=== PATIENT | male | born 1995 | race Caucasian/White ===

== ENCOUNTER 2020-08-04 14:16 | Emergency (ER) | payer MEDICAID, SELFPAY ==
[2020-08-04 14:18] VITALS: BP 134/99; PULSE 92; RESP 16; TEMP 36.7; O2SAT 97; BMI 42.1
--- NOTE | 2020-08-04 14:21 | ED.RN ---
PT ASKING IF ER PROVIDER WILL WRITE PRESCRIPTION FOR SUBOXONE BECAUSE I HAVE NOT BEEN TO A DOCTOR BECAUSE I HAVE NO INSURANCE. PATIENT THEN STATES I HOPE THIS GETS ME MONEY, BECAUSE EVERYONE IS TELLING ME I WILL GET MONEY IF I GO TO ER.
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
[2020-08-04] MEDS: Acetaminophen 500 MG Tablet 1000 MG PO (14:57)
[2020-08-04 15:32] VITALS: RESP 18
== END 2020-08-04 15:34 | disposition home or self-care (01) ==
PROVIDERS: Emergency Provider Emergency Medicine
DX: S93.401A Sprain of unspecified ligament of right ankle, initial encounter (principal); F17.200 Nicotine dependence, unspecified, uncomplicated; V43.63XA Car passenger injured in collision with pick-up truck in traffic accident, initial encounter; Y93.I9 Activity, other involving external motion; Y92.410 Unspecified street and highway as the place of occurrence of the external cause; Y99.8 Other external cause status
CPT/HCPCS: 73610; 99283

== ENCOUNTER 2021-04-24 18:52 | Emergency (ER) | payer MEDICAID, SELFPAY ==
[2021-04-24 18:53] VITALS: BP 152/119; PULSE 117; RESP 16; TEMP 35.8; O2SAT 98; BMI 36.6
--- NOTE | 2021-04-24 18:56 | ED.RN ---
PT. STATES THEY LIVE WITH MOM AND SISTER. HAS NEVER BEEN SUICIDAL AND HAS NO PLAN. APPEARS DEPRESSED. HAS BEEN OFF SUBOXONE FOR ABOUT SIX TO EIGHT MONTHS DUE TO NOT BEING ABLE TO AFFORD PRESCRIPTION. DENIES ANY DRUG USE, OTHER THAN MARIJUANA.
--- NOTE | 2021-04-24 19:04 | EDS_ITS ---
HPI <HAMILTON Vega - Last Filed: 04/24/21 20:26> HPI - Psych History of Present Illness Chief Complaint: Mental Health Narrative Narrative: 25-year-old male presents with suicidal ideation. He states he wants to hurt himself but will not provide any details as to when this started and states he has no plan. When probed he states he might inject bleach or lie down in the snow and fall asleep. He denies homicidal ideation. He states he lives with his mom and sister in [place] and denies any domestic conflict or recent stressors. He states he feels like a burden on his family and he cannot keep a job. He walked here 40 minutes in the snow to be evaluated. He states he has been depressed since high school but denies history of SI or psychiatric hospitalization. He has a remote history of heroin use and was on Suboxone but stopped taking it 8 months ago because he cannot afford it. He admits to using marijuana and drinking beer occasionally. He denies medical problems and the only medication he takes is occasional ibuprofen. PFSH <HAMILTON Vega - Last Filed: 04/24/21 20:26> [facility] Home Medications NK 04/24/21 [History Last Taken Unknown] Allergy/AdvReac Type Severity Reaction Status Date / Time Penicillins Allergy Rash Verified 08/04/20 14:21 Social History Smoking Status: Current some day smoker tobacco type: cigarettes ROS <HAMILTON Vega - Last Filed: 04/24/21 20:26> ROS ED ROS Narrative Constitutional: Negative for fever, chills, malaise. Eyes: Negative for visual change. ENT: Negative for sore throat, ear pain, rhinorrhea. CVS: Negative for palpitations, chest pain, syncope. Respiratory: Negative for shortness of breath, cough, orthopnea. GI: Negative for abdominal pain, nausea, vomiting, diarrhea, constipation, melena, hematochezia. : Negative for dysuria, hematuria or frequency. Neuro: Negative for headache, motor/sensory dysfunction. Skin: Negative for rash, abscess, or wound. Heme: Negative for easy bruising, bleeding, lymphadenopathy. EXAM <HAMILTON Vega - Last Filed: 04/24/21 20:26> Physical Exam Narrative Exam Narrative: CONST: Patient sitting in no acute distress. EYES: Normal inspection. ENT: Normal inspection, moist mucous membranes. NECK: Normal inspection. RESP: No respiratory distress, CTAB. CVS: Tachycardic with regular rhythm, no murmur, no gallop. SKIN: Color normal, no rash, warm, dry, intact. EXTREMITIES: Normal appearance, no pedal edema. NEURO: Oriented x4. CN 2-12 intact. Moving all extremities, normal gait. PSYCH: Flat affect. Const Vital Signs: 04/24/21 18:53 04/24/21 21:44 04/25/21 00:00 Temperature 96.5 F L 97.8 F Temperature Source Temporal Temporal Pulse Rate 117 H 84 Respiratory Rate 16 18 15 Blood Pressure 152/119 H 139/82 H Blood Pressure Mean 130 101 Pulse Ox 98 100 Oxygen Delivery Method Room Air Room Air 04/25/21 01:00 04/25/21 02:20 04/25/21 03:14 Temperature Temperature Source Pulse Rate 89 Respiratory Rate 14 16 16 Blood Pressure 159/90 H Blood Pressure Mean 113 Pulse Ox 100 Oxygen Delivery Method Room Air 04/25/21 04:40 04/25/21 05:31 04/25/21 06:37 Temperature Temperature Source Pulse Rate Respiratory Rate 20 H 16 16 Blood Pressure Blood Pressure Mean Pulse Ox Oxygen Delivery Method 04/25/21 10:12 Temperature 97.8 F Temperature Source Temporal Pulse Rate 99 Respiratory Rate 16 Blood Pressure 140/83 H Blood Pressure Mean 102 Pulse Ox 99 Oxygen Delivery Method Room Air <Dr. Armand Corrales, DO - Last Filed: 04/25/21 10:40> Physical Exam Const Vital Signs: 04/24/21 18:53 04/24/21 21:44 04/25/21 00:00 Temperature 96.5 F L 97.8 F Temperature Source Temporal Temporal Pulse Rate 117 H 84 Respiratory Rate 16 18 15 Blood Pressure 152/119 H 139/82 H Blood Pressure Mean 130 101 Pulse Ox 98 100 Oxygen Delivery Method Room Air Room Air 04/25/21 01:00 04/25/21 02:20 04/25/21 03:14 Temperature Temperature Source Pulse Rate 89 Respiratory Rate 14 16 16 Blood Pressure 159/90 H Blood Pressure Mean 113 Pulse Ox 100 Oxygen Delivery Method Room Air 04/25/21 04:40 04/25/21 05:31 04/25/21 06:37 Temperature Temperature Source Pulse Rate Respiratory Rate 20 H 16 16 Blood Pressure Blood Pressure Mean Pulse Ox Oxygen Delivery Method 04/25/21 10:12 Temperature 97.8 F Temperature Source Temporal Pulse Rate 99 Respiratory Rate 16 Blood Pressure 140/83 H Blood Pressure Mean 102 Pulse Ox 99 Oxygen Delivery Method Room Air MDM <HAMILTON Vega - Last Filed: 04/24/21 20:26> MDM MDM Narrative Medical decision making narrative: Patient presents with suicidal ideation. He appears well nontoxic. He is mildly hypertensive and tachycardic, otherwise no rmal vital signs. Medical exam is unremarkable. Screening labs including alcohol and urine drug screen are pending. The plan is to medically clear the patient for transfer to psychiatric facility for further evaluation of SI. Lab Data Labs: Laboratory Results - last 24 hr 04/24/21 04/24/21 04/24/21 19:55 19:55 19:55 WBC 7.7 RBC 4.56 L Hgb 14.4 Hct 39.9 L MCV 87.5 MCH 31.6 MCHC 36.1 H RDW Std Deviation 37.9 RDW Coeff of Vicky 11.8 Plt Count 291 MPV 11.1 Immature Gran % (Auto) 0.300 Neut % (Auto) 72.8 H Lymph % (Auto) 16.0 L [place] % (Auto) 9.8 Eos % (Auto) 0.7 Baso % (Auto) 0.4 Absolute Neuts (auto) 5.6 Absolute Lymphs (auto) 1.23 Nucleated RBC % 0 Sodium 137 Potassium 3.7 Chloride 103 Carbon Dioxide 28.0 Anion Gap 6 BUN 12 Creatinine 1.08 Estim Creat Clear Calc 112.77 Est GFR (MDRD) Af Amer 105 Est GFR (MDRD) Non-Af 87 BUN/Creatinine Ratio 11.1 Glucose 115 H Calcium 9.1 Urine Opiates Screen Urine Methadone Screen Ur Barbiturates Screen Ur Phencyclidine Scrn Ur Amphetamines Screen U Methamphetamin-MDMA U Benzodiazepines Scrn Urine Cocaine Screen U Cannabinoids Screen Ur Drug Screen Comment Ethyl Alcohol < 3.0 04/24/21 23:00 WBC RBC Hgb Hct MCV MCH MCHC RDW Std Deviation RDW Coeff of Vicky Plt Count MPV Immature Gran % (Auto) Neut % (Auto) Lymph % (Auto) [place] % (Auto) Eos % (Auto) Baso % (Auto) Absolute Neuts (auto) Absolute Lymphs (auto) Nucleated RBC % Sodium Potassium Chloride Carbon Dioxide Anion Gap BUN Creatinine Estim Creat Clear Calc Est GFR (MDRD) Af Amer Est GFR (MDRD) Non-Af BUN/Creatinine Ratio Glucose Calcium Urine Opiates Screen NEGATIVE Urine Methadone Screen NEGATIVE Ur Barbiturates Screen NEGATIVE Ur Phencyclidine Scrn NEGATIVE Ur Amphetamines Screen POSITIVE H U Methamphetamin-MDMA POSITIVE H U Benzodiazepines Scrn NEGATIVE Urine Cocaine Screen NEGATIVE U Cannabinoids Screen POSITIVE H Ur Drug Screen Comment Ethyl Alcohol <Dr. Armand Corrales, DO - Last Filed: 04/25/21 10:40> MDM MDM Narrative Medical decision making narrative: Patient seen and evaluated. He expressed concern for suicidal thoughts and stated that he would inject bleach into his arm or drink bleach in order to kill himself. He also expressed to me that he would lay down in the snow and go to sleep until he . He has no history of psychiatric disease that is diagnosed but does state that he has a longstanding history of depression since high school. Its been worse over the last year and expresses to me that he feels worthlessness to his family as he has to borrow money from them because he cannot hold down a job. He denies any ingestion prior to coming to the ER. He denies any history of suicide attempts. He states he does not feel he can go home because he was concerned he will hurt himself or kill himself. CBC and BMP are normal. EtOH negative. Rapid Covid is negative. Currently waiting to medically clear the patient denies he has not been able to give a urine sample. Urine drug screen does show methamphetamines and cannabinoids. Impression: 1. Depression 2. Suicidal thoughts Lab Data Attestation: I reviewed the patient's lab results. Labs: Laboratory Results - last 24 hr 04/24/21 04/24/21 04/24/21 19:55 19:55 19:55 WBC 7.7 RBC 4.56 L Hgb 14.4 Hct 39.9 L MCV 87.5 MCH 31.6 MCHC 36.1 H RDW Std Deviation 37.9 RDW Coeff of Vicky 11.8 Plt Count 291 MPV 11.1 Immature Gran % (Auto) 0.300 Neut % (Auto) 72.8 H Lymph % (Auto) 16.0 L [place] % (Auto) 9.8 Eos % (Auto) 0.7 Baso % (Auto) 0.4 Absolute Neuts (auto) 5.6 Absolute Lymphs (auto) 1.23 Nucleated RBC % 0 Sodium 137 Potassium 3.7 Chloride 103 Carbon Dioxide 28.0 Anion Gap 6 BUN 12 Creatinine 1.08 Estim Creat Clear Calc 112.77 Est GFR (MDRD) Af Amer 105 Est GFR (MDRD) Non-Af 87 BUN/Creatinine Ratio 11.1 Glucose 115 H Calcium 9.1 Urine Opiates Screen Urine Methadone Screen Ur Barbiturates Screen Ur Phencyclidine Scrn Ur Amphetamines Screen U Methamphetamin-MDMA U Benzodiazepines Scrn Urine Cocaine Screen U Cannabinoids Screen Ur Drug Screen Comment Ethyl Alcohol < 3.0 04/24/21 23:00 WBC RBC Hgb Hct MCV MCH MCHC RDW Std Deviation RDW Coeff of Vicky Plt Count MPV Immature Gran % (Auto) Neut % (Auto) Lymph % (Auto) [place] % (Auto) Eos % (Auto) Baso % (Auto) Absolute Neuts (auto) Absolute Lymphs (auto) Nucleated RBC % Sodium Potassium Chloride Carbon Dioxide Anion Gap BUN Creatinine Estim Creat Clear Calc Est GFR (MDRD) Af Amer Est GFR (MDRD) Non-Af BUN/Creatinine Ratio Glucose Calcium Urine Opiates Screen NEGATIVE Urine Methadone Screen NEGATIVE Ur Barbiturates Screen NEGATIVE Ur Phencyclidine Scrn NEGATIVE Ur Amphetamines Screen POSITIVE H U Methamphetamin-MDMA POSITIVE H U Benzodiazepines Scrn NEGATIVE Urine Cocaine Screen NEGATIVE U Cannabinoids Screen POSITIVE H Ur Drug Screen Comment Ethyl Alcohol Discharge Plan Triage Chief Complaint: Mental Health ED Provider: Melissa Manley Dx/Rx/DC Orders Clinical Impression: Suicidal ideation Prescriptions: No Action NK RF: 0 Primary Care Provider: Care Physician,No Primary Referrals: Care Physician,No Primary [Primary Care Provider] - Disposition Disposition: Psychiatric Hospital or Unit
[2021-04-24 20:05] LABS: Absolute Lymphocyte Count 1.23 X10^3/uL (0.83-4.51); Absolute Neutrophil Count 5.6 X10^3/uL (2.0-7.7); Basophil# 0.03 X10^3/uL; Basophil% 0.4 % (0-1); Eosinophil# 0.05 X10^3/uL; Eosinophils% 0.7 % (0-5); Hematocrit 39.9 % (40-54); Hemoglobin 14.4 g/dL (13.0-16.5); Lymphocyte # 1.23 X10^3/ul (0.83-4.51); Mean Corp Hgb Conc 36.1 g/dL (32-36); Mean Corpuscular Hgb 31.6 pg (27.0-32.0); Mean Corpuscular Volume 87.5 fL (80-94); Mean Platelet Vol. 11.1 fl (6.2-12.0); Monocyte# 0.75 X10^3/uL; Monocyte% 9.8 % (0-10); NRBC Flagged by Analyzer 0 % (0-5); Neutrophil % 72.8 % (47-70); Platelet Count 291 K/mm3 (150-450); RBC Distribution Width CV 11.8 % (11.6-14.6); RBC Distribution Width SD 37.9 fl (35.1-43.9); Red Blood Count 4.56 M/mm3 (4.6-6.2); White Blood Count 7.7 K/mm3 (4.4-11.0)
--- NOTE | 2021-04-24 20:19 | ED.RN ---
PT DENIED SUICIDAL IDEATIONS TO MULTIPLE RN'S, BUT DID TELL MD HE WAS SUICIDAL. 1:1 SITTER ORDERED
[2021-04-24 20:22] LABS: Alcohol, Blood (Medical)-Serum < 3.0 mg/dL
[2021-04-24 20:24] LABS: Anion Gap 6 (5-15); BUN 12 mg/dL (7-18); BUN/Creat Ratio 11.1 RATIO (10-20); Calcium,Total 9.1 mg/dL (8.5-10.1); Chloride 103 mmol/L (98-107); Creatinine, Serum 1.08 mg/dL (0.70-1.30); EST Glomerular Filtration Rate 87 mL/min (>60); Est Glom Filt Rate - Afr Amer 105 mL/min (>60); Estimated Creatinine Clearance 112.77 ml/min; Glucose 115 mg/dL (74-106); Potassium 3.7 mmol/L (3.5-5.1); Sodium Level 137 mmol/L (136-145)
[2021-04-24 21:44] VITALS: BP 139/82; PULSE 84; RESP 18; TEMP 36.6; O2SAT 100
--- NOTE | 2021-04-24 21:44 | ED.RN ---
PT ASSISTED TO BATHROOM X2, MAINTAINS HE CANNOT URINATE. MULTIPLE GLASSES OF WATER GIVEN.
--- NOTE | 2021-04-24 23:11 | ED.RN ---
PT UNABLE TO URINATE, OBTAINED SAMPLE BY STRAIGHT CATH.
[2021-04-24 23:43] LABS: Amphetamine Urine VISTA POSITIVE (<1000 ng/mL); Barbiturate Urine VISTA NEGATIVE (< 200 ng/mL); Benzodiazepine Urine VISTA NEGATIVE (< 200 ng/mL); Cocaine Urine VISTA NEGATIVE (< 300 ng/mL); Ecstacy Urine VISTA POSITIVE (< 500 ng/mL); Methadone Urine VISTA NEGATIVE (< 300 ng/mL); PCP Urine VISTA NEGATIVE (< 25 ng/mL); THC Urine VISTA POSITIVE (< 50 ng/mL); Vista UDS pH Range 4
[2021-04-25] VITALS (11 sets, daily range): BP systolic 124–159; BP diastolic 76–90; PULSE 65–99; RESP 14–20; TEMP 36.6–37.1; O2SAT 98–100
--- NOTE | 2021-04-25 00:12 | NURSING ---
CALLED CRISIS AT 0012 AND FAXED CHART
[2021-04-25] MEDS: LORazepam 1 MG Tablet PO (01:10)
--- NOTE | 2021-04-25 02:20 | ED.RN ---
patient spoke to crisis, crisis working on placement for the patient
--- NOTE | 2021-04-25 02:39 | ED.RN ---
crisis called patient is pending [facility]
[2021-04-25] MEDS: LORazepam 0.5 MG Tablet PO (09:59)
--- NOTE | 2021-04-25 10:32 | ED.RN ---
THIS NURSE SPOKE WITH [facility]. PT PENDING AT [facility]
--- NOTE | 2021-04-25 12:14 | CM.ED ---
Social Work Emergency Department. Spoke with Michelle Stinson RN in the ED and then followed up with call to Loraine in Crisis at [facility]. Per Loraine, the patient's referral to [facility] is pending, and pending based on patient being positive for methamphetamines. [facility] wanted patient to be observed for 24 hours before making a decision. Loraine reports will be following up with [facility] today. Updated Shantell in the ED. -ABEBE Hardin, HIDE DROPPER
--- NOTE | 2021-04-25 13:38 | ED.RN ---
PT CALLED THIS NURSE INTO THE ROOM. PT STATES I WANT TO GO HOME. I LIED ABOUT EVERYTHING. I DON'T WANT TO BE HERE ANYMORE. THIS NURSE CONTACTED [facility] REQUESTING THE PHYSICAL TRAINERFRONT LOADER RESIDENTIAL DRIVER TO CALL THE ER
--- NOTE | 2021-04-25 14:31 | NURSING ---
1401 CALLED [facility], ETA IS 2 HRS
--- NOTE | 2021-04-25 15:42 | ED.RN ---
report attempted to [facility]. was hung up on. will try again
== END 2021-04-25 15:57 ==
PROVIDERS: Emergency Provider Physician Assistant; Visit Provider Physician Assistant
DX: F32.A Depression, unspecified (principal); R45.851 Suicidal ideations; F17.210 Nicotine dependence, cigarettes, uncomplicated
CPT/HCPCS: 51701; 80048; 80307; 82077; 85025; 87426; 99285; P9612

== ENCOUNTER 2022-09-05 13:30 | Emergency (ER) | payer MEDICAID, SELFPAY ==
[2022-09-05 13:31] VITALS: BP 119/93; PULSE 129; RESP 18; TEMP 35.5; O2SAT 97; BMI 35.2
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
[2022-09-05] MEDS: predniSONE 20 MG Tablet 40 MG PO (14:50)
[2022-09-05] MEDS: Ibuprofen 200 MG Tablet 400 MG PO (14:50)
[2022-09-05 14:54] VITALS: PULSE 93
== END 2022-09-05 14:55 | disposition home or self-care (01) ==
PROVIDERS: Emergency Provider Emergency Medicine; Visit Provider Emergency Medicine
DX: L29.9 Pruritus, unspecified (principal); F17.210 Nicotine dependence, cigarettes, uncomplicated
CPT/HCPCS: 99283

== ENCOUNTER 2023-10-05 08:14 | Emergency (ER) | payer MEDICAID, SELFPAY ==
[2023-10-05 08:15] VITALS: BP 125/85; PULSE 99; RESP 18; TEMP 36; O2SAT 100; BMI 37.9
--- NOTE | 2023-10-05 08:27 | EDS_ITS ---
HPI History of Present Illness Chief Complaint: Head Injury Detail of Chief Complaint: Head injury Informant: patient Narrative Narrative: Patient presents to the emergency department with complaint of a head injury that occurred 7 or 8 months ago. Patient states he fell and cut his head. He wants to make sure that there is not something wrong with his brain or swelling on the brain. Patient states that he occasionally does get headaches but takes ibuprofen or Tylenol and they resolve with that. Denies recent falls or recent illness. Patient has no primary care physician. He admits occasional alcohol and tobacco use. Admits to marijuana use. Denies other illicit drug use. Patient has history of depression but does not take medication. He denies history of schizophrenia or psychosis. PFSH PFS Home Medications ?Medication ?Instructions ?Recorded ?Last Taken ?Type prednisone 50 mg tablet 50 mg PO DAILY #5 tabs 09/05/22 Unknown Rx Allergy/AdvReac Type Severity Reaction Status Date / Time Penicillins Allergy Rash Verified 10/05/23 08:15 Social History Smoking Status: Current some day smoker tobacco type: cigarettes ROS ROS ED Review of Systems ROS Unobtainable: other Constitutional Constitutional ED: Reports lethargy; Denies chills, fever(s), sweats or weight loss Eyes Eyes: Denies blurry vision, change in vision or diplopia ENT ENT ED: Denies rhinorrhea or sore throat Cardiovascular Cardiovascular: Denies chest pain, orthopnea or racing heartbeat Respiratory/Chest Respiratory/Chest: Denies cough, dyspnea, dyspnea on exertion, orthopnea or sputum Gastrointestinal Gastrointestinal: Denies abdominal pain, diarrhea, nausea or vomiting Genitourinary Genitourinary ED: Denies dysuria, hematuria or urinary frequency Musculoskeletal Musculoskeletal: Denies arthralgias, back pain, myalgias or neck pain Integumentary Denies abscess, Abrasions or rash Neurologic Neurologic: Reports headache(s); Denies weakness Psychiatric Psychiatric: Denies anxiety, depression or suicidal thoughts Endocrine Endocrinology: Denies polydipsia, polyphagia or polyuria Hematologic/Lymphatic Hematologic/Lymphatic: Denies easy bleeding, easy bruising or lymphadenopathy Allergic/Immunologic Allergic/Immunologic ED: Denies mouth swelling, tongue swelling or urticaria EXAM Physical Exam Const Vital Signs: 10/05/23 08:15 10/05/23 08:21 Temperature 96.8 F L Temperature Source Temporal Pulse Rate 99 Respiratory Rate 18 Respiratory Effort Normal Respiratory Depth Normal Respiratory Pattern Normal Blood Pressure 125/85 H Blood Pressure Mean 98 Pulse Ox 100 Oxygen Delivery Method Room Air Positive well nourished and well developed General Appearance ED: well developed and NAD HEENT Reports TM's clear and moist mucous membranes HEENT Narrative: No evidence of trauma to his head. normocephalic and atraumatic; Negative for trauma or tenderness Tympanic Membrane ED: Yes TM's clear Eyes PERRL and EOMs intact bilaterally General Eye ED: Negative for pale conjunctiva or scleral icterus Neck no lymphadenopathy, supple and no JVD General: Negative for tenderness Chest Wall inspection of chest normal and palpation of chest normal Chest: Negative for tenderness Resp normal respiratory effort and clear to auscultation bilaterally Effort and Inspection: Negative for respiratory distress or pain with movement Auscultation: Negative for rhonchi, wheezes or diminished lung sounds Cardio regular rate, regular rhythm, S1 normal heart sound, S2 normal heart sound and no murmurs Peripheral Pulses: pulses 2+ throughout GI normal to inspection, nondistended, normoactive bowel sounds, soft to palpation, non-tender, non-distended and no masses Back/Spine no CVA tenderness and no thoracic nor lumbar tenderness Extremity normal to inspection General Extremety ED: Negative for edema General Extremity: Negative for edema Neuro oriented x3, CN's II-XII intact bilaterally, no sensory deficits noted and gait normal Neuro Narrative: Finger-nose and heel jensen testing within normal limits, negative Romberg, negative , Fundi benign Sensorium / Orientation: awake, alert, oriented to person, oriented to place and oriented to time Motor Exam: strength 5/5 throughout and strength abnormal Psych mental status grossly normal Skin no rashes or lesions noted and no wounds MDM MDM MDM Narrative Medical decision making narrative: Patient presents with concern for head injury that happened 7 or 8 months ago. There is no evidence of trauma to his head. Patient clinically looks well. Neurologically intact. There is no indication for imaging. Patient not suicidal or homicidal. He denies hallucinations. Will discharge to home and a dvised to follow-up with primary care physician. Discharge Plan Triage Chief Complaint: Head Injury ED Provider: Esperanza Jason Dx/Rx/DC Orders Clinical Impression: Head injury Instructions: ED Head Injury (Adult) Prescriptions: No Action prednisone 50 mg tablet 50 mg PO DAILY Qty: 5 0RF Primary Care Provider: Care Physician,No Primary Referrals: Gisele Raya MD [Med Staff - Financial Reporting Specialist] - 5-7 Days Care Physician,No Primary [Primary Care Provider] - Print Language: Andorran Disposition Disposition: Home, Self Care Discharge Date/Time: 10/05/23 08:41
== END 2023-10-05 08:41 | disposition home or self-care (01) ==
LOC: ED 08:41
PROVIDERS: Emergency Provider Emergency Medicine; Visit Provider Emergency Medicine
DX: S09.90XA Unspecified injury of head, initial encounter (principal); F17.210 Nicotine dependence, cigarettes, uncomplicated; W19.XXXA Unspecified fall, initial encounter
CPT/HCPCS: 99282

== ENCOUNTER 2023-10-27 21:13 | Emergency (ER) | payer MEDICAID, SELFPAY ==
[2023-10-27 21:13] VITALS: BP 164/110; PULSE 92; RESP 16; TEMP 37.1; O2SAT 98; BMI 40.5
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
== END 2023-10-27 21:51 | disposition home or self-care (01) ==
PROVIDERS: Emergency Provider Emergency Medicine; Visit Provider Emergency Medicine
DX: B35.3 Tinea pedis (principal); B35.4 Tinea corporis; F17.210 Nicotine dependence, cigarettes, uncomplicated
CPT/HCPCS: 99282

== ENCOUNTER 2025-02-14 10:21 | Emergency (ER) | payer MEDICAID, SELFPAY ==
[2025-02-14 10:22] VITALS: BP 119/87; PULSE 105; RESP 16; TEMP 36.1; O2SAT 95; BMI 32.4
--- NOTE | 2025-02-14 10:48 | EKG12_ITS ---
Test Reason : placement Blood Pressure : */* mmHG Vent. Rate : 74 BPM Atrial Rate : 74 BPM P-R Int : 158 ms QRS Dur : 90 ms QT Int : 364 ms P-R-T Axes : 58 22 48 degrees QTcB Int : 404 ms Normal sinus rhythm Normal ECG Confirmed by CL PANG ([id number]), advertising editor LYNDA FROST ([id number]) on 02/19/2025 6:31:28 AM Referred By: Confirmed By: CL PANG
[2025-02-14 10:58] LABS: Hematocrit 47.8 % (40-54); Hemoglobin 16.6 g/dL (13.0-16.5); Immature Granulocytes Count 0.030 X10^3/uL (0.0-0.0); Mean Corp Hgb Conc 34.7 g/dL (32-36); Mean Corpuscular Volume 93.4 fL (80-94); Mean Platelet Vol. 10.2 fl (6.2-12.0); NRBC Flagged by Analyzer 0 % (0-5); Platelet Count 287 K/mm3 (150-450); RBC Distribution Width CV 12.2 % (11.6-14.6); RBC Distribution Width SD 42.2 fl (35.1-43.9); Red Blood Count 5.12 M/mm3 (4.6-6.2); White Blood Count 7.8 K/mm3 (4.4-11.0)
[2025-02-14 11:02] VITALS: BP 134/88; PULSE 64; RESP 18; TEMP 37; O2SAT 98
[2025-02-14 11:38] LABS: AST(SGOT) 48 U/L (<=37); Alanine Aminotransfer ALT/SGPT 81 U/L (<=46); Albumin, Serum 4.2 g/dL (3.5-5.0); Alkaline Phosphatase 68 U/L (40-129); Anion Gap 11 (5-15); BUN 9 mg/dL (4-19); BUN/Creat Ratio 9.6 RATIO (10-20); Calcium,Total 9.6 mg/dL (7.6-11.0); Carbon Dioxide 25.1 mmol/L (21.0-32.0); Chloride 102 mmol/L (98-108); Estimated Creatinine Clearance 146.38 ml/min (50-250); Globulin 3.4 g/dL (2.2-4.2); Glucose 103 mg/dL (70-99); Potassium 4.4 mmol/L (3.3-5.1)
[2025-02-14 11:39] LABS: Alcohol, Blood (Medical)-Serum < 10.1 mg/dL (<=10.0)
--- NOTE | 2025-02-14 11:40 | EDS_ITS ---
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 She reported that the patient was recently arrested for menacing. He went to see the rolled ham lacer today who felt that the patient needed to be in a psychiatric facility. He has continued homicidal ideation of killing black people. He states that his mother's boyfriend is black and he wishes him . States he also would like to kill his mother. He reportedly expressed hallucinations to crisis at their evaluation. Patient states he used to be on Prozac but is not currently on any medications. He denies any suicidal ideation. 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 Patient currently cooperative with staff. [facility] Medical History Major depressive disorder Schizophrenia Home Medications ?Medication ?Instructions ?Recorded ?Last Taken ?Type NK 02/14/25 Unknown History Allergy/AdvReac Type Severity Reaction Status Date / Time Penicillins Allergy Rash Verified 02/14/25 10:25 Social History Smoking Status: Current some day smoker tobacco type: cigarettes ROS ROS ED Constitutional Constitutional ED: Denies chills, fever(s) or weight loss Eyes Eyes: Denies change in vision or diplopia ENT ENT ED: Denies ear pain, rhinorrhea or sore throat Cardiovascular Cardiovascular: Denies chest pain, orthopnea, palpitations or racing heartbeat Respiratory/Chest Respiratory/Chest: Denies cough, dyspnea or orthopnea Gastrointestinal Gastrointestinal: Denies abdominal pain, diarrhea, nausea or vomiting Genitourinary Genitourinary ED: Denies dysuria, hematuria or urinary frequency Musculoskeletal Musculoskeletal: Denies arthralgias or myalgias Integumentary Denies abscess or rash Neurologic Neurologic: Denies headache(s) or weakness Psychiatric Psychiatric: Reports other Details: Homicidal ideation ; Denies anxiety, depression, suicidal ideation or suicidal thoughts Endocrine Endocrinology: Denies polydipsia, polyphagia or polyuria Allergic/Immunologic Allergic/Immunologic ED: Denies mouth swelling, tongue swelling or urticaria EXAM Physical Exam Const Vital Signs: 02/14/25 10:22 02/14/25 11:02 Temperature 96.9 F L 98.6 F Temperature Source Temporal Oral Pulse Rate 105 H 64 Respiratory Rate 16 18 Blood Pressure 119/87 H 134/88 H Blood Pressure Mean 97 103 Pulse Ox 95 98 Oxygen Delivery Method Room Air Room Air Positive well nourished and well developed Constitutional Narrative: Disheveled General Appearance ED: well developed HEENT Reports normocephalic, head/scalp atraumatic and moist mucous membranes Eyes PERRL and EOMs intact bilaterally Neck no lymphadenopathy, supple and no JVD Resp normal respiratory effort and clear to auscultation bilaterally Cardio regular rate, regular rhythm and no murmurs GI normal to inspection, nondistended, normoactive bowel sounds and non-tender Palpation: soft Back/Spine no CVA tenderness and normal ROM Extremity normal to inspection General Extremety ED: Negative for edema General Extremity: Negative for edema Neuro oriented x3 and CN's II-XII intact bilaterally Sensorium / Orientation: alert Motor Exam: strength 5/5 throughout Psych Psych Narrative: Patient appears internally stimulated. He expresses homicidal ideation he notes visual hallucinations Mood & Affect: Negative for depressed or tearful Thought Content: homicidality and hallucination(s) Attention / Concentration: attention grossly intact Memory / Cognition: memory grossly intact Insight: limited Judgement: poor Skin no rashes or lesions noted and no wounds MDM MDM MDM Narrative Medical decision making narrative: Differential diagnosis includes schizophrenia substance use disorder encephalopathy homicidality Psychiatric screening labs will be obtained. EKG shows a normal sinus rhythm at a rate of 74. He is currently under a pink slip to this facility. Will be working with crisis to see about placement most likely requiring [facility]. History & Record Review Discussion w/independent historian: Patient and Other (Law enforcement community crisis) Lab Data Attestation: I reviewed the patient's lab results. Labs: Laboratory Results - last 24 hr 02/14/25 02/14/25 10:52 11:29 WBC 7.8 RBC 5.12 Hgb 16.6 H Hct 47.8 MCV 93.4 MCH 32.4 H MCHC 34.7 RDW Std Deviation 42.2 RDW Coeff of Vicky 12.2 Plt Count 287 MPV 10.2 Immature Gran % (Auto) 0.400 Neut % (Auto) 65.6 Lymph % (Auto) 25.3 [place] % (Auto) 7.5 Eos % (Auto) 0.9 Baso % (Auto) 0.3 Absolute Neuts (auto) 5.1 Absolute Lymphs (auto) 1.98 Nucleated RBC % 0 Sodium 138 Potassium 4.4 Chloride 102 Carbon Dioxide 25.1 Anion Gap 11 BUN 9 Creatinine 0.93 Estim Creat Clear Calc 146.38 Est GFR (MDRD) Non-Af 113 BUN/Creatinine Ratio 9.6 L Glucose 103 H Calcium 9.6 Total Bilirubin 0.52 AST 48 H ALT 81 H Alkaline Phosphatase 68 Total Protein 7.6 Albumin 4.2 Globulin 3.4 Albumin/Globulin Ratio 1.2 Urine Opiates Screen NEGATIVE U Buprenorphine Qual NEGATIVE Ur Oxycodone Screen NEGATIVE Urine Methadone Screen NEGATIVE Urine Fentanyl Screen NEGATIVE Ur Barbiturates Screen NEGATIVE Ur Phencyclidine Scrn NEGATIVE Ur Amphetamines Screen NEGATIVE U Benzodiazepines Scrn NEGATIVE Urine Cocaine Screen NEGATIVE U Cannabinoids Screen PRESUMPTIVE POSITIVE Ethyl Alcohol < 10.1 EKG Initial EKG: Attestation: I personally reviewed and interpreted this EKG as follows: Comments: Normal sinus rhythm ventricular rate of 74 bpm Management Discussion w/another healthcare provider: Behavioral health Discharge Plan Triage Chief Complaint: Mental Health ED Provider: Jamaal Whitley Dx/Rx/DC Orders Clinical Impression: Schizophrenia, Homicidal ideations Prescriptions: No Action NK Primary Care Provider: Care Physician,No Primary Referrals: Care Physician,No Primary [Primary Care Provider, Medical] Print Language: Yi Disposition Disposition: Psychiatric Hospital or Unit
--- NOTE | 2025-02-14 11:41 | ED.RN ---
Elzbieta called from Crisis and referred to [facility]
[2025-02-14 12:11] LABS: Barbiturate Urine NEGATIVE (< 200 ng/mL); Benzodiazepine Urine NEGATIVE (< 200 ng/mL); PCP Urine NEGATIVE (< 25 ng/mL); THC Urine PRESUMPTIVE POSITIVE (< 50 ng/mL)
[2025-02-14] MEDS: Nicotine 4mg Gum (PBKC) 4 MG GUM PO (14:09)
--- NOTE | 2025-02-14 16:30 | PCA ---
1430-THIS US SENT [facility]ICAL [facility]. 1611- THEY CALLED TO INFORM DECLINED AT [facility], REFERRAL OUT TO [facility]
--- NOTE | 2025-02-14 17:04 | PCA ---
ACCEPTED AT [facility]. N2N [phone], ACCEPTING DR DE. ROOM/ UNIT: U
[2025-02-14 21:08] VITALS: BP 138/85; PULSE 82; RESP 20; TEMP 36.6; O2SAT 100
--- NOTE | 2025-02-14 22:32 | ED.RN ---
REPORT GIVEN TO [facility]
== END 2025-02-14 21:10 ==
PROVIDERS: Emergency Provider Emergency Medicine; Visit Provider Emergency Medicine
DX: F20.9 Schizophrenia, unspecified (principal); R45.850 Homicidal ideations; Z79.899 Other long term (current) drug therapy; F17.210 Nicotine dependence, cigarettes, uncomplicated
CPT/HCPCS: 80053; 80307; 82077; 85025; 93005; 99283

== ENCOUNTER 2025-03-19 11:56 | Emergency (ER) | payer MEDICAID, SELFPAY ==
[2025-03-19 11:57] VITALS: BP 114/77; PULSE 116; RESP 18; TEMP 36.7; O2SAT 100
--- NOTE | 2025-03-19 12:48 | EX.ED.DYSGE1 ---
HPI History of Present Illness Chief Complaint: Wound Check Narrative Narrative: 29-year-old male presents emergency department for complaint of wound check. [facility] homeless [facility] after complaining of left big toe pain. Patient states that they brought him here because he was having pain around his left big toe states that he does wear shoes and socks and is concerned for possible gangrene. Denies any numbness, weakness, trauma, fevers or chills. PFSH PFS Medical History Major depressive disorder Schizophrenia Home Medications ?Medication ?Instructions ?Recorded ?Last Taken ?Type aripiprazole 10 mg tablet 10 mg PO DAILY 03/19/25 Unknown History divalproex 500 mg tablet,delayed 500 mg PO BID 03/19/25 Unknown History release trazodone 50 mg tablet 50 mg PO QHS 03/19/25 Unknown History Allergy/AdvReac Type Severity Reaction Status Date / Time Penicillins Allergy Rash Verified 03/19/25 11:57 Social History Smoking Status: Current some day smoker tobacco type: cigarettes EXAM Physical Exam Const Vital Signs: 03/19/25 11:57 Temperature 98.1 F Temperature Source Oral Pulse Rate 116 H Respiratory Rate 18 Blood Pressure 114/77 Blood Pressure Mean 89 Pulse Ox 100 Oxygen Delivery Method Room Air Positive well nourished and unkempt General Appearance ED: unkempt Resp normal respiratory effort GI normal to inspection, nondistended, normoactive bowel sounds Extremity Extremity Narrative: Bilateral feet with large unkempt toenails. Less than 2-second capillary refill. 2+ DP and PT pulses bilaterally. Full range of motion. Left second toe showing subungual hematoma that appears old with no pain. Some blue coloring noted over the lateral aspects of bilateral feet which I was able to rub off suspect this is likely from coloration of sock. No evidence of skin necrosis General Extremety ED: Negative for tenderness Psych Appearance: unkempt MDM MDM MDM Narrative Medical decision making narrative: 29-year-old male presents emergency department for complaint of wound check. [facility] complaining of left big toe pain. Patient states that they brought him here because he was having pain around his left big toe states that he does wear shoes and socks and is concerned for possible gangrene. Denies any numbness, weakness, trauma, fevers or chills. On my physical exam patient resting comfortably no acute distress. Bilateral feet with large unkempt toenails. Less than 2-second capillary refill. 2+ DP and PT pulses bilaterally. Full range of motion. Left second toe showing subungual hematoma that appears old with no pain. Some blue coloring noted over the lateral aspects of bilateral feet which I was able to rub off suspect this is likely from coloration of sock. No evidence of skin necrosis and low suspicion for gangrene or frostbite as there is no skin discoloration. No evidence of trauma do not feel that x-ray imaging needed at this time. Vitals initially show tachycardia though in the room patient was in the 90s. Vital stable agreeable for discharge and return precautions given with follow-up to podiatry. Discharge Plan Triage Chief Complaint: Wound Check ED Provider: Jesenia Boyce Dx/Rx/DC Orders Clinical Impression: Visit for wound check Prescriptions: No Action trazodone 50 mg tablet 50 mg PO QHS divalproex 500 mg tablet,delayed release (DR/EC) 500 mg PO BID aripiprazole 10 mg tablet 10 mg PO DAILY Primary Care Provider: Care Physician,No Primary Referrals: Jamaal Doty DPM [Med Staff - Active Staff, Podiatry] Care Physician,No Primary [Primary Care Provider, Medical] Activity Restrictions/Additional Instructions: Please call the podiatry regarding a visit today within the next week. Please make sure you keep GRF socks clean and dry prevent any infection of your feet. Return if develop any worsening symptoms or fevers Print Language: Belarusian Disposition Disposition: Home, Self Care
--- NOTE | 2025-03-19 14:11 | ED.RN ---
Per Titus, patient's mother called stating that she would not be able to pick patient up and did not have money for him to get a cab. Za RN notified who spoke with patient and told patient that he would have to walk to his cousins. Per Za, patient was given 2 pairs of clean socks and fresh coffee. Patient verbalized being okay with plan and was observed exiting ER to walk to patient's cousin's house. Patient's mother was notified of patient walking due to lack of transportion and funds. Mother stated to this RN that's just fucking crazy, I don't think he should be walking in this cold. Mother notified patient has already left ER and was okay with plan to walk to cousins. Mother stated I want to speak to a supervisor pipe manufacture. Mother placed on hold and certified mortician Alyssa notified of call. Mother hung up phone before Mily could answer.
== END 2025-03-19 13:40 | disposition home or self-care (01) ==
PROVIDERS: Emergency Provider Student in an Organized Health Care Education/Training Program; Visit Provider Student in an Organized Health Care Education/Training Program
DX: S90.122D Contusion of left lesser toe(s) without damage to nail, subsequent encounter (principal); F20.9 Schizophrenia, unspecified; Z59.00 Homelessness unspecified; Z79.899 Other long term (current) drug therapy; F32.9 Major depressive disorder, single episode, unspecified; F17.210 Nicotine dependence, cigarettes, uncomplicated; X58.XXXD Exposure to other specified factors, subsequent encounter
CPT/HCPCS: 99284